=== PATIENT | female | born 2005 | race Caucasian/White ===

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

== ENCOUNTER → 2023-01-06 | Outpatient (REF) | payer OTHER ==
[~2023-01-06] MED LIST changes: +ACET300T48 PO; -CITA40TA4 PO; +CITA40TA7 PO; +HYDR50TA70
[2023-01-06 17:43] LABS: BASO # 0.1 10^3/uL (0.0-0.2); BASO % 0.4 % (0.0-1.0); EOS # 0.3 10^3/uL (0.0-0.5); EOS % 2.9 % (0.0-3.0); HEMATOCRIT 39.5 % (36.0-47.0); HEMOGLOBIN 12.9 g/dl (12.0-15.5); LYMPH # 2.1 10^3/uL (1.5-5.0); LYMPH % 18.8 % (24.0-44.0); MEAN CORPUSCULAR HEMOGLOBIN 28.9 pg (27.0-33.0); MEAN CORPUSCULAR HGB CONC 32.7 g/dl (32.0-36.5); MEAN CORPUSCULAR VOLUME 88.4 fl (80.0-96.0); MONO # 0.9 10^3/uL (0.0-0.8); MONO % 7.6 % (2.0-8.0); NEUTROPHILS # 7.8 10^3/uL (1.5-8.5); NEUTROPHILS % 69.8 % (36.0-66.0); PLATELET COUNT, AUTOMATED 255 10^3/uL (150-450); RED BLOOD COUNT 4.47 10^6/uL (4.00-5.40); WHITE BLOOD COUNT 11.1 10^3/uL (4.0-10.0)
[2023-01-06 18:10] LABS: FREE T4 1.11 NG/DL (0.83-1.43); THYROID STIMULATING HORMONE 1.162 uIU/ML (0.48-4.17)
[2023-01-09 03:09] LABS: TESTOSTERONE FREE (DIRECT) 4.3 pg/mL (Not Estab.)
== END ==
LOC: M SFHCADAM 11:45
PROVIDERS: ATTEND Physician Assistant Medical
DX: R61 Generalized hyperhidrosis (principal); L67.8 Other hair color and hair shaft abnormalities

== ENCOUNTER → 2025-07-30 | Outpatient (CLI) | payer OTHER, BC ==
[~2025-07-30] MED LIST changes: -FLOM0.4C39 PO; +TAMS-18 PO
== END ==
LOC: M ADAMS 10:49
PROVIDERS: ATTEND Physician Assistant Medical
DX: M79.10 Myalgia, unspecified site (principal); G89.29 Other chronic pain; M25.512 Pain in left shoulder

== ENCOUNTER → 2025-09-05 | Outpatient (CLI) | payer BC, OTHER | LOC: M SOG 07:24 | PROVIDERS: ATTEND Neuromusculoskeletal Medicine, Sports Medicine | DX: M25.512 Pain in left shoulder (principal) ==

== ENCOUNTER → 2025-09-10 | Outpatient (CLI) | payer BC, OTHER | LOC: M SOG 07:37 | PROVIDERS: ATTEND Neuromusculoskeletal Medicine, Sports Medicine | DX: M79.641 Pain in right hand (principal); M79.642 Pain in left hand; Z53.9 Procedure and treatment not carried out, unspecified reason ==